=== PATIENT | female | born 1990 | race African-American/Black ===

== ENCOUNTER 2017-01-28 09:53 | Observation (INO) | payer MEDICAID ==
[~2017-01-28] VITALS: Ht 167.6 cm; Wt 115.2 kg
[~2017-01-28 09:53] MED LIST: FERR-63 PO; FOLI-43 PO; PREN-88 PO
[2017-01-28 10:50] LABS: BASOPHILS % 0.3 % (0.0-2.0); HEMOGLOBIN. 11.4 g/dL (12.0-16.0); LYMPHOCYTES % 28.3 % (20.0-50.0); MEAN CORPUSCULAR HEMOGLOBIN 29.3 pg (28.0-32.0); MEAN CORPUSCULAR VOLUME 87.7 fL (81.0-99.0); MEAN PLATELET VOLUME 8.6 fl (7.4-10.4); MONOCYTES % 8.4 % (2.0-8.0); PLATELET 213 x1000/uL (130-400); RED BLOOD CELL COUNT 3.88 mill/uL (4.2-5.4); RED CELL DISTRIBUTION WIDTH 13.6 % (11.6-14.6)
[2017-01-28 10:56] LABS: CHLORIDE 109 mEq/L (98-107)
[2017-01-28 10:57] LABS: CLARITY URINE CLOUDY (CLEAR); COLOR URINE DARK YELLOW (YELLOW); GLUCOSE URINE NEGATIVE (NEGATIVE); KETONES URINE TRACE (NEGATIVE); LEUKOCYTE ESTERASE URINE TRACE (NEGATIVE); NITRITE URINE NEGATIVE (NEGATIVE); OCCULT BLOOD URINE NEGATIVE (NEGATIVE); PH URINE 5.5 (4.5-8.0); PROTEIN URINE 3+ (NEGATIVE); SPECIFIC GRAVITY URINE 1.028 (1.005-1.030)
[2017-01-28 11:01] LABS: D-DIMER 1.21 mg/L FEU (<0.50); INR 0.9; PARTIAL THROMBOPLASTIN TIME 27.8 sec (24.0-34.0); PROTHROMBIN TIME 9.4 sec
[2017-01-28 11:05] LABS: CARBON DIOXIDE 23 mEq/L (21-32)
[2017-01-28] MEDS ORDERED: BETAMETHASONE ACET/BETAMET 30 MG/5 ML VIAL IM SCH (12:30)
[2017-01-28] MEDS ORDERED: LABETALOL 5MG/ML SYR 20 MG/4 ML SYRINGE IV NR (12:30)
[2017-01-28] MEDS: LACTATED RINGERS 1,000 ML IV SCH ×2 (12:59→17:44)
[2017-01-28 13:25] LABS: *AMPHETAMINES SCREEN URINE NEGATIVE (NEGATIVE); *BARBITURATES SCREEN URINE NEGATIVE (NEGATIVE); *BENZODIAZEPINES SCREEN URINE NEGATIVE (NEGATIVE); *COCAINE SCREEN URINE NEGATIVE (NEGATIVE); CANNABINOID URINE SCREEN NEGATIVE (NEGATIVE); METHADONE URINE SCREEN NEGATIVE (NEGATIVE); OPIATES URINE SCREEN NEGATIVE (NEGATIVE); PHENCYCLIDINE URINE SCREEN NEGATIVE (NEGATIVE)
[2017-01-28 14:21] LABS: HEPATITIS B SURFACE ANTIGEN NEGATIVE; RUBELLA IGG 61.5 IU/mL (4.99-10)
[2017-01-28] MEDS ORDERED: MAGNESIUM/ALUMINUM HYDROXIDE/SIMETHICONE 30ML UDC PO NR (14:30)
[2017-01-28] MEDS: MAGNESIUM 20 G PREMIX (L & D) 500 ML IV SCH (14:38)
[2017-01-28] MEDS ORDERED: ACETAMINOPHEN 325MG TABLET PO PRN (18:15)
[2017-01-28] MEDS: MAGNESIUM/ALUMINUM HYDROXIDE/SIMETHICONE 30ML UDC PO PRN (19:57)
[2017-01-29 02:11] LABS: CARBON DIOXIDE 22 mEq/L (21-32); CHLORIDE 105 mEq/L (98-107)
[2017-01-29] MEDS: LACTATED RINGERS 1,000 ML IV SCH ×2 (04:12→23:40)
[2017-01-29] MEDS: MAGNESIUM 20 G PREMIX (L & D) 500 ML IV SCH (07:18)
[2017-01-29] MEDS: MAGNESIUM/ALUMINUM HYDROXIDE/SIMETHICONE 30ML UDC PO PRN ×2 (07:49→17:42)
[2017-01-29 09:09] LABS: HEMATOCRIT. 33.1 % (36.0-48.0); HEMOGLOBIN. 11.1 g/dL (12.0-16.0); LYMPHOCYTES % 14.3 % (20.0-50.0); MEAN CORPUSCULAR HEMOGLOBIN 29.5 pg (28.0-32.0); MEAN CORPUSCULAR VOLUME 88.3 fL (81.0-99.0); MEAN PLATELET VOLUME 8.5 fl (7.4-10.4); MONOCYTES % 3.1 % (2.0-8.0); NEUTROPHILS % 82.6 % (40.0-76.0); PLATELET 235 x1000/uL (130-400); RED BLOOD CELL COUNT 3.75 mill/uL (4.2-5.4); RED CELL DISTRIBUTION WIDTH 13.7 % (11.6-14.6)
[2017-01-29] MEDS: CALCIUM CARBONATE 500MG TABLET CHEW PO SCH ×2 (12:50→18:22)
[2017-01-29 12:56] LABS: HEMATOCRIT 32.1 % (36.0-48.0); HEMOGLOBIN 10.8 g/dL (12.0-16.0); MEAN CORPUSCULAR HEMOGLOBIN 29.5 pg (28.0-32.0); MEAN CORPUSCULAR VOLUME 87.5 fL (81.0-99.0); PLATELET 237 x1000/uL (130-400); RED BLOOD CELL COUNT 3.67 mill/uL (4.2-5.4); RED CELL DISTRIBUTION WIDTH 13.6 % (11.6-14.6)
[2017-01-29] MEDS ORDERED: BETAMETHASONE ACET/BETAMET 30 MG/5 ML VIAL IM SCH (13:00)
[2017-01-29 13:11] LABS: CARBON DIOXIDE 23 mEq/L (21-32); CHLORIDE 106 mEq/L (98-107)
[2017-01-29] MEDS ORDERED: CITRIC ACID/SODIUM CITRATE SOLN 30ML UDC PO SCH (21:00)
[2017-01-29] MEDS ORDERED: CITRIC ACID/SODIUM CITRATE SOLN 30ML UDC PO PRN (21:30)
[2017-01-30] MEDS: MAGNESIUM/ALUMINUM HYDROXIDE/SIMETHICONE 30ML UDC PO PRN ×3 (00:09→20:49)
[2017-01-30 03:00] LABS: HEMATOCRIT. 31.9 % (36.0-48.0); HEMOGLOBIN. 10.4 g/dL (12.0-16.0); MEAN CORPUSCULAR HEMOGLOBIN 29.4 pg (28.0-32.0); MEAN CORPUSCULAR VOLUME 90.1 fL (81.0-99.0); PLATELET 238 x1000/uL (130-400); RED BLOOD CELL COUNT 3.54 mill/uL (4.2-5.4)
[2017-01-30 03:12] LABS: CARBON DIOXIDE 25 mEq/L (21-32); CHLORIDE 108 mEq/L (98-107)
[2017-01-30] MEDS: MAGNESIUM 20 G PREMIX (L & D) 500 ML IV SCH ×2 (04:50→23:16)
[2017-01-30 07:35] LABS: NUCLEATED RED BLOOD CELLS 1 /100 WBC; PLATELET ESTIMATE NORMAL
[2017-01-30] MEDS: CALCIUM CARBONATE 500MG TABLET CHEW PO SCH ×3 (08:11→18:32)
[2017-01-30] MEDS: LACTATED RINGERS 1,000 ML IV SCH ×2 (10:00→23:09)
[2017-01-30] MEDS: PANTOPRAZOLE 40MG DR TABLET PO SCH (15:33)
[2017-01-30 15:40] LABS: BASOPHILS % 0.1 % (0.0-2.0); EOSINOPHILS % 0.1 % (0.0-5.0); HEMATOCRIT. 31.3 % (36.0-48.0); HEMOGLOBIN. 10.4 g/dL (12.0-16.0); LYMPHOCYTES % 20.5 % (20.0-50.0); MEAN CORPUSCULAR HEMOGLOBIN 29.7 pg (28.0-32.0); MEAN PLATELET VOLUME 8.7 fl (7.4-10.4); MONOCYTES % 9.4 % (2.0-8.0); NEUTROPHILS % 69.9 % (40.0-76.0); PLATELET 221 x1000/uL (130-400); RED BLOOD CELL COUNT 3.51 mill/uL (4.2-5.4); RED CELL DISTRIBUTION WIDTH 13.9 % (11.6-14.6)
[2017-01-30 15:52] LABS: CARBON DIOXIDE 24 mEq/L (21-32); CHLORIDE 108 mEq/L (98-107)
[2017-01-30 23:16] VITALS: BP 135/72
[2017-01-31] MEDS: LACTATED RINGERS 1,000 ML IV SCH (05:25)
[2017-01-31 05:26] LABS: BASOPHILS % 0.2 % (0.0-2.0); EOSINOPHILS % 0.4 % (0.0-5.0); HEMATOCRIT. 30.3 % (36.0-48.0); HEMOGLOBIN. 10.1 g/dL (12.0-16.0); LYMPHOCYTES % 24.2 % (20.0-50.0); MEAN CORPUSCULAR HEMOGLOBIN 29.5 pg (28.0-32.0); MEAN PLATELET VOLUME 7.7 fl (7.4-10.4); MONOCYTES % 8.3 % (2.0-8.0); NEUTROPHILS % 66.9 % (40.0-76.0); PLATELET 199 x1000/uL (130-400); RED BLOOD CELL COUNT 3.41 mill/uL (4.2-5.4)
[2017-01-31 05:31] LABS: CHLORIDE 108 mEq/L (98-107)
[2017-01-31 05:41] LABS: CARBON DIOXIDE 28 mEq/L (21-32)
[2017-01-31] MEDS: CALCIUM CARBONATE 500MG TABLET CHEW PO SCH (07:31)
[2017-01-31] MEDS: PANTOPRAZOLE 40MG DR TABLET PO SCH (10:13)
== END 2017-01-31 15:40 | disposition home or self-care (01) ==
LOC: L&D 09:53
PROVIDERS: ADMIT Obstetrics & Gynecology; ATTEND Obstetrics & Gynecology
DX: O13.3 Gestational [pregnancy-induced] hypertension without significant proteinuria, third trimester (principal); O99.343 Other mental disorders complicating pregnancy, third trimester; F31.9 Bipolar disorder, unspecified; F32.9 Major depressive disorder, single episode, unspecified; Z3A.32 32 weeks gestation of pregnancy
CPT/HCPCS: 36415; 76805; 76818; 80053; 80305; 81001; 83735; 84550; 85007; 85025; 85027; 85379; 85384; 85610; 85730; 86592; 86703; 86762; 86850; 86900; 86901; 87340; 93971; 96365; 96366; 96372; 96375; 99281; G0378; J0702; J3475; J3490; J7120; 59412

== ENCOUNTER 2017-02-06 11:20 | Observation (INO) | payer MEDICAID ==
[~2017-02-06] VITALS: Ht 170.2 cm; Wt 115.2 kg
[2017-02-06] MEDS ORDERED: METH250T11 PO (12:23)
[2017-02-06] MEDS ORDERED: LACTATED RINGERS 1,000 ML IV SCH (14:24)
[2017-02-06] MEDS ORDERED: MAGNESIUM 20 G PREMIX (L & D) 500 ML IV SCH (14:30)
[2017-02-06] MEDS ORDERED: DEXT 5%/LR + PITOCIN 20UNITS/L 1,000 ML IV SCH (14:30)
[2017-02-06] MEDS ORDERED: LABETALOL 5MG/ML SYR 20 MG/4 ML SYRINGE IV NR (14:30)
[2017-02-06] MEDS ORDERED: METHYLERGONOVINE MALEATE 0.2 MG/ML IM PRN (14:30)
[2017-02-06] MEDS ORDERED: CARBOPROST TROMETHAMINE 250 MCG/ML AMPUL IM PRN (14:30)
[2017-02-06 14:59] VITALS: BP 170/112
[2017-02-06] MEDS ORDERED: ACETAMINOPHEN 500MG TABLET PO NR (15:00)
[2017-02-06 15:48] LABS: BASOPHILS % 0.3 % (0.0-2.0); EOSINOPHILS % 0.5 % (0.0-5.0); HEMATOCRIT. 38.9 % (36.0-48.0); HEMOGLOBIN. 13.3 g/dL (12.0-16.0); LYMPHOCYTES % 28.8 % (20.0-50.0); MEAN CORPUSCULAR HEMOGLOBIN 30.2 pg (28.0-32.0); MEAN CORPUSCULAR VOLUME 88.4 fL (81.0-99.0); MEAN PLATELET VOLUME 9.7 fl (7.4-10.4); NEUTROPHILS % 64.4 % (40.0-76.0); PLATELET 208 x1000/uL (130-400); RED CELL DISTRIBUTION WIDTH 14.1 % (11.6-14.6)
[2017-02-06 15:53] LABS: INR 0.9; PARTIAL THROMBOPLASTIN TIME 26.8 sec (24.0-34.0); PROTHROMBIN TIME 9.3 sec
[2017-02-06 15:54] LABS: CLARITY URINE CLOUDY (CLEAR); COLOR URINE YELLOW (YELLOW); GLUCOSE URINE NEGATIVE (NEGATIVE); KETONES URINE NEGATIVE (NEGATIVE); LEUKOCYTE ESTERASE URINE TRACE (NEGATIVE); NITRITE URINE NEGATIVE (NEGATIVE); OCCULT BLOOD URINE 1+ (NEGATIVE); PH URINE 6.5 (4.5-8.0); PROTEIN URINE 3+ (NEGATIVE); SPECIFIC GRAVITY URINE 1.008 (1.005-1.030); UROBILINOGEN URINE 0.2 E.U./dL (0.2-1.0)
[2017-02-06 15:56] LABS: CHLORIDE 105 mEq/L (98-107)
[2017-02-06 16:03] LABS: CARBON DIOXIDE 23 mEq/L (21-32)
[2017-02-06 16:13] LABS: *AMPHETAMINES SCREEN URINE NEGATIVE (NEGATIVE); *BARBITURATES SCREEN URINE NEGATIVE (NEGATIVE); *BENZODIAZEPINES SCREEN URINE NEGATIVE (NEGATIVE); *COCAINE SCREEN URINE NEGATIVE (NEGATIVE); CANNABINOID URINE SCREEN NEGATIVE (NEGATIVE); METHADONE URINE SCREEN NEGATIVE (NEGATIVE); OPIATES URINE SCREEN NEGATIVE (NEGATIVE); PHENCYCLIDINE URINE SCREEN NEGATIVE (NEGATIVE)
[2017-02-06 16:23] LABS: HEPATITIS B SURFACE ANTIGEN NEGATIVE; RUBELLA IGG 59.7 IU/mL (4.99-10)
[2017-02-06] MEDS ORDERED: CITRIC ACID/SODIUM CITRATE SOLN 30ML UDC PO NR (16:30)
[2017-02-06] MEDS ORDERED: MORPHINE SULFATE/PF 1MG/ML 10ML AMP ONE (17:35)
[2017-02-06] MEDS ORDERED: FENTANYL CITRATE/PF 50MCG/ML 2ML VIAL ONE (17:35)
[2017-02-06] MEDS ORDERED: METOCLOPRAMIDE HCL 10MG/2ML VIAL ONE (17:38)
[2017-02-06] MEDS ORDERED: ONDANSETRON HCL 4MG/2ML VIAL ONE (17:38)
[2017-02-06] MEDS ORDERED: OXYTOCIN 10 UNITS/ML 1ML ONE (17:38)
[2017-02-06] MEDS ORDERED: CEFAZOLIN 2000MG PREMIX 50 ML IV ONE (17:45)
[2017-02-06] MEDS ORDERED: ALBUTEROL 6.7GM HFA INHALER ORI PRN (18:00)
== END 2017-02-06 18:07 | disposition left against medical advice (07) ==
LOC: L&D 11:20 → UNDODISOB 12:15 → L&D 12:25
PROVIDERS: ADMIT Obstetrics & Gynecology; ATTEND Obstetrics & Gynecology
DX: O14.13 Severe pre-eclampsia, third trimester (principal); O99.513 Diseases of the respiratory system complicating pregnancy, third trimester; J45.909 Unspecified asthma, uncomplicated; Z3A.32 32 weeks gestation of pregnancy
CPT/HCPCS: 36415; 59025; 76815; 76818; 80053; 80305; 81001; 84550; 85025; 85384; 85610; 85730; 86592; 86703; 86762; 86850; 86900; 86901; 87340; 96365; 96366; 96375; G0378; J0690; J2765; J3010; J3475; J3490; J7120; J2274; J2405; J7611; A4315

== ENCOUNTER 2017-04-27 10:34 | Emergency (ER) | payer MEDICAID ==
[~2017-04-27] VITALS: Ht 167.6 cm; Wt 110.0 kg
[~2017-04-27 10:34] MED LIST changes: -FOLI-43 PO; -PREN-88 PO
[2017-04-27 11:50] LABS: CLARITY URINE CLEAR (CLEAR); COLOR URINE YELLOW (YELLOW); GLUCOSE URINE NEGATIVE (NEGATIVE); KETONES URINE NEGATIVE (NEGATIVE); LEUKOCYTE ESTERASE URINE NEGATIVE (NEGATIVE); NITRITE URINE NEGATIVE (NEGATIVE); OCCULT BLOOD URINE 2+ (NEGATIVE); PH URINE 5.5 (4.5-8.0); PROTEIN URINE 1+ (NEGATIVE); SPECIFIC GRAVITY URINE 1.023 (1.005-1.030); UROBILINOGEN URINE 0.2 E.U./dL (0.2-1.0)
[2017-04-27 12:09] LABS: BASOPHILS % 0.5 % (0.0-2.0); EOSINOPHILS % 1.4 % (0.0-5.0); HEMATOCRIT. 35.9 % (36.0-48.0); HEMOGLOBIN. 12.2 g/dL (12.0-16.0); LYMPHOCYTES % 34.9 % (20.0-50.0); MEAN CORPUSCULAR HEMOGLOBIN 28.7 pg (28.0-32.0); MEAN CORPUSCULAR VOLUME 84.1 fL (81.0-99.0); MEAN PLATELET VOLUME 7.1 fl (7.4-10.4); MONOCYTES % 5.9 % (2.0-8.0); NEUTROPHILS % 57.3 % (40.0-76.0); PLATELET 298 x1000/uL (130-400); RED BLOOD CELL COUNT 4.26 mill/uL (4.2-5.4); RED CELL DISTRIBUTION WIDTH 14.4 % (11.6-14.6)
[2017-04-27 12:17] LABS: *AMPHETAMINES SCREEN URINE NEGATIVE (NEGATIVE); *BARBITURATES SCREEN URINE NEGATIVE (NEGATIVE); *BENZODIAZEPINES SCREEN URINE NEGATIVE (NEGATIVE); *COCAINE SCREEN URINE NEGATIVE (NEGATIVE); CANNABINOID URINE SCREEN NEGATIVE (NEGATIVE); METHADONE URINE SCREEN NEGATIVE (NEGATIVE); OPIATES URINE SCREEN NEGATIVE (NEGATIVE); PHENCYCLIDINE URINE SCREEN NEGATIVE (NEGATIVE)
[2017-04-27 12:21] LABS: CARBON DIOXIDE 30 mEq/L (21-32); CHLORIDE 105 mEq/L (98-107); ETHANOL BLOOD < 10 mg/dL
[2017-04-27 12:26] LABS: TROPONIN I < 0.02 ng/mL (0.00-0.04)
[2017-04-27 15:52] VITALS: BP 138/84
== END 2017-04-27 16:21 | disposition left against medical advice (07) ==
LOC: ER 10:46
DX: G40.89 Other seizures (principal); R51 Headache; H53.8 Other visual disturbances; I10 Essential (primary) hypertension; J45.909 Unspecified asthma, uncomplicated; Z91.018 Allergy to other foods
CPT/HCPCS: 36415; 70450; 80053; 80305; 81001; 81025; 84484; 85025; 93005; 99285; G0482; Z7610

== ENCOUNTER 2017-06-23 18:05 | Emergency (ER) | payer MEDICAID ==
[~2017-06-23] VITALS: Ht 170.2 cm; Wt 112.0 kg
[2017-06-23 18:19] VITALS: BP 147/83
== END 2017-06-23 22:14 | disposition left against medical advice (07) ==
LOC: ER 18:13
DX: Z53.21 Procedure and treatment not carried out due to patient leaving prior to being seen by health care provider (principal); J45.909 Unspecified asthma, uncomplicated; I10 Essential (primary) hypertension

== ENCOUNTER 2017-11-10 15:36 | Emergency (ER) | payer MEDICAID ==
[~2017-11-10] VITALS: Ht 165.1 cm; Wt 113.0 kg
[2017-11-10] MEDS ORDERED: PREDNISONE 20MG TABLET PO STA (19:37)
[2017-11-10] MEDS ORDERED: ALBUTEROL (0.083%) 2.5MG/3ML NEB HHN STA (19:37)
[2017-11-10] MEDS ORDERED: IPRATROPIUM BROMIDE (0.02%) 0.5MG/2.5ML NEB HHN STA (19:37)
[2017-11-10 19:40] VITALS: BP 131/89
[2017-11-10] MEDS ORDERED: LIDOCAINE HCL 1% 20ML VIAL (Pyxis) INJ MC ONE (19:45)
[2017-11-10] MEDS ORDERED: BACITRACIN ZINC OINT UDPKT TOP ONE (19:45)
== END 2017-11-10 21:37 | disposition home or self-care (01) ==
LOC: ER 15:36
DX: J45.909 Unspecified asthma, uncomplicated (principal); L02.412 Cutaneous abscess of left axilla; I10 Essential (primary) hypertension; Z91.018 Allergy to other foods
CPT/HCPCS: 71045; 81025; 94640; 99283; J3490; J7512; J7611; X7700; Z7610

== ENCOUNTER 2019-04-05 21:09 | Emergency (ER) | payer MEDICAID ==
[~2019-04-05] VITALS: Ht 167.6 cm; Wt 107.0 kg
[2019-04-05] MEDS ORDERED: DIPHENHYDRAMINE HCL/ZINC ACET 28 GM CREAM TOP STA (22:54)
[2019-04-05] MEDS ORDERED: DIPHENHYDRAMINE 25MG CAPSULE PO ONE (23:00)
[2019-04-05] MEDS ORDERED: BUTALBITAL/ACETAMINOPHEN/CAFFEINE 50/325/40MG TABLET PO ONE (23:00)
[2019-04-06 00:38] LABS: CLARITY URINE CLOUDY (CLEAR); COLOR URINE YELLOW (YELLOW); KETONES URINE NEGATIVE (NEGATIVE); LEUKOCYTE ESTERASE URINE TRACE (NEGATIVE); NITRITE URINE NEGATIVE (NEGATIVE); OCCULT BLOOD URINE 1+ (NEGATIVE); PH URINE 5.5 (4.5-8.0); PROTEIN URINE TRACE (NEGATIVE); SPECIFIC GRAVITY URINE 1.039 (1.005-1.030)
[2019-04-06 03:30] VITALS: BP 110/54
== END 2019-04-06 03:30 | disposition home or self-care (01) ==
LOC: ER 23:49
DX: R51 Headache (principal); N39.0 Urinary tract infection, site not specified
CPT/HCPCS: 81003; 81025; 99284; Q0163; Z7610

== ENCOUNTER 2020-03-16 13:43 | Emergency (ER) | payer MEDICAID ==
[~2020-03-16] VITALS: Ht 167.6 cm; Wt 112.0 kg
[2020-03-16 16:34] VITALS: BP 131/71
[2020-03-16 17:44] LABS: CLARITY URINE CLEAR (CLEAR); COLOR URINE YELLOW (YELLOW); KETONES URINE TRACE (NEGATIVE); LEUKOCYTE ESTERASE URINE NEGATIVE (NEGATIVE); NITRITE URINE NEGATIVE (NEGATIVE); OCCULT BLOOD URINE NEGATIVE (NEGATIVE); PROTEIN URINE NEGATIVE (NEGATIVE); SPECIFIC GRAVITY URINE 1.031 (1.005-1.030)
[2020-03-16 18:00] LABS: *AMPHETAMINES SCREEN URINE NEGATIVE (NEGATIVE); *BARBITURATES SCREEN URINE NEGATIVE (NEGATIVE); *BENZODIAZEPINES SCREEN URINE NEGATIVE (NEGATIVE); *COCAINE SCREEN URINE NEGATIVE (NEGATIVE)
[2020-03-16] MEDS ORDERED: DIPHENHYDRAMINE 25MG CAPSULE PO ONE (18:00)
[2020-03-16] MEDS ORDERED: ACETAMINOPHEN 325MG TABLET PO ONE (18:00)
[2020-03-16] MEDS ORDERED: AMOXICILLIN 250MG CAPSULE PO ONE (18:00)
[2020-03-16 18:01] LABS: CANNABINOID URINE SCREEN NEGATIVE (NEGATIVE); METHADONE URINE SCREEN NEGATIVE (NEGATIVE); OPIATES URINE SCREEN NEGATIVE (NEGATIVE); PHENCYCLIDINE URINE SCREEN NEGATIVE (NEGATIVE)
== END 2020-03-16 19:01 | disposition home or self-care (01) ==
LOC: ER 13:43
DX: T38.6X5A Adverse effect of antigonadotrophins, antiestrogens, antiandrogens, not elsewhere classified, initial encounter (principal); R11.2 Nausea with vomiting, unspecified; L29.9 Pruritus, unspecified; R82.4 Acetonuria; C50.919 Malignant neoplasm of unspecified site of unspecified female breast; J45.909 Unspecified asthma, uncomplicated; I10 Essential (primary) hypertension
CPT/HCPCS: 80305; 81003; 99284; Q0163

== ENCOUNTER 2021-10-20 00:48 | Emergency (ER) | payer MEDICAID ==
[~2021-10-20] VITALS: Ht 167.6 cm; Wt 107.0 kg
[2021-10-20 03:40] VITALS: BP 128/82
[2021-10-20] MEDS ORDERED: NAPR500T7 MT (03:40)
[2021-10-20] MEDS ORDERED: CLIN300C12 MT (03:40)
== END 2021-10-20 03:44 | disposition home or self-care (01) ==
LOC: ER 00:48
DX: C50.912 Malignant neoplasm of unspecified site of left female breast (principal); J45.909 Unspecified asthma, uncomplicated; K59.00 Constipation, unspecified; I10 Essential (primary) hypertension; Z98.890 Other specified postprocedural states
CPT/HCPCS: 81025; 99282; 99283

== ENCOUNTER 2022-09-22 10:54 | Emergency (ER) | payer MEDICAID, OTHER ==
[~2022-09-22] VITALS: Ht 167.6 cm; Wt 107.0 kg
[~2022-09-22 10:54] MED LIST changes: +CLIN-194 MT; +NAPR500T7 MT
[2022-09-22] MEDS ORDERED: KETOROLAC 60MG/2ML VIAL IM ONE (12:15)
[2022-09-22] MEDS ORDERED: LIDOCAINE 5% PATCH TOP SCH (12:15)
[2022-09-22] MEDS ORDERED: ACETAMINOPHEN 325MG TABLET PO ONE (12:15)
[2022-09-22 13:00] VITALS: BP 137/86
[2022-09-22] MEDS ORDERED: ACET-2708 MT (13:59)
[2022-09-22] MEDS ORDERED: LIDO1ADH7 TP (13:59)
== END 2022-09-22 14:29 | disposition home or self-care (01) ==
LOC: ER 10:54
DX: S46.092A Other injury of muscle(s) and tendon(s) of the rotator cuff of left shoulder, initial encounter (principal); S39.012A Strain of muscle, fascia and tendon of lower back, initial encounter; I10 Essential (primary) hypertension; V49.49XA Driver injured in collision with other motor vehicles in traffic accident, initial encounter; Y93.89 Activity, other specified; Z85.3 Personal history of malignant neoplasm of breast; Y92.488 Other paved roadways as the place of occurrence of the external cause; Z90.12 Acquired absence of left breast and nipple
CPT/HCPCS: 73000; 73030; 99284; J1885

== ENCOUNTER 2023-04-15 19:46 | Emergency (ER) | payer BC, MEDICAID, OTHER ==
[~2023-04-15] VITALS: Ht 167.6 cm; Wt 105.0 kg
[~2023-04-15 19:46] MED LIST changes: +ACET-2708 MT; +LIDO1ADH7 TP
[2023-04-15 20:28] VITALS: BP 140/91; PULSE 99; RESP 16; TEMP 98.6; O2SAT 100
[2023-04-15 21:07] LABS: BASOPHILS % 0.3 % (0.0-2.0); HEMOGLOBIN. 11.4 g/dL (12.0-16.0); LYMPHOCYTES % 18.4 % (20.0-50.0); MEAN CORPUSCULAR HEMOGLOBIN 27.6 pg (28.0-32.0); MEAN CORPUSCULAR HGB CONC 31.7 g/dL (31.0-37.0); MEAN CORPUSCULAR VOLUME 87.1 fL (81.0-99.0); MEAN PLATELET VOLUME 7.3 fl (7.4-10.4); MONOCYTES % 5.9 % (2.0-8.0); NEUTROPHILS % 74.4 % (40.0-76.0); PLATELET 262 x1000/uL (130-400); RED BLOOD CELL COUNT 4.13 mill/uL (4.2-5.4); RED CELL DISTRIBUTION WIDTH 15.3 % (11.6-14.6); WHITE BLOOD COUNT 4.7 x1000/uL (4.5-11.0)
[2023-04-15 21:13] LABS: CHLORIDE 104 mEq/L (98-107); INDEX HEMOLYSI 2 (1-3); INDEX ICTERIC 1 (1-4); INDEX LIPEMIC 1 (1-3); POTASSIUM 3.9 mEq/L (3.5-5.1); SODIUM 137 mEq/L (136-145)
[2023-04-15 21:21] LABS: ALANINE AMINOTRANSFERASE 22 IU/L (13-61); ALBUMIN 3.3 g/dL (3.4-5.0); ASPARTATE AMINOTRANSFERASE 17 IU/L (15-37); BILIRUBIN TOTAL 0.2 mg/dL (0.1-1.0); CALCIUM 9.2 mg/dL (8.5-10.1); CARBON DIOXIDE 27 mEq/L (21-32); CREATININE 1.2 mg/dL (0.6-1.3); GLUCOSE 135 mg/dL (70-105); PROTEIN TOTAL 7.9 g/dL (6.0-8.3); UREA NITROGEN BLOOD 12 mg/dL (7-21)
[2023-04-15 21:49] LABS: CLARITY URINE CLEAR (CLEAR); COLOR URINE YELLOW (YELLOW); GLUCOSE URINE NEGATIVE (NEGATIVE); KETONES URINE TRACE (NEGATIVE); LEUKOCYTE ESTERASE URINE NEGATIVE (NEGATIVE); NITRITE URINE NEGATIVE (NEGATIVE); OCCULT BLOOD URINE NEGATIVE (NEGATIVE); PROTEIN URINE NEGATIVE (NEGATIVE); SPECIFIC GRAVITY URINE 1.026 (1.005-1.030)
== END 2023-04-15 23:45 | disposition left against medical advice (07) ==
LOC: ER 19:46
DX: Z53.21 Procedure and treatment not carried out due to patient leaving prior to being seen by health care provider (principal); I49.9 Cardiac arrhythmia, unspecified
CPT/HCPCS: 36415; 80053; 81003; 81025; 85025; 93005; 99281

== ENCOUNTER 2024-03-07 21:04 | Emergency (ER) | payer BC, MEDICAID ==
[~2024-03-07] VITALS: Ht 170.2 cm; Wt 107.5 kg
[2024-03-07 21:36] VITALS: O2SAT 98
[2024-03-08] MEDS: MAGNESIUM/ALUMINUM HYDROXIDE/SIMETHICONE 30ML UDC PO ONE (01:02)
[2024-03-08] MEDS: OMEPRAZOLE 20MG CAPSULE EXTENDED RELEASE PO ONE (01:02)
[2024-03-08] MEDS ORDERED: OMEP20CA14 MT (01:53)
[2024-03-08] MEDS ORDERED: SUCR1ORA15 PO (01:53)
[2024-03-08] MEDS ORDERED: HYDR30CR7 TP (02:02)
[2024-03-08 02:14] VITALS: BP 132/84; PULSE 77; RESP 18; TEMP 98.3
== END 2024-03-08 02:18 | disposition home or self-care (01) ==
LOC: ER 21:49
DX: K21.9 Gastro-esophageal reflux disease without esophagitis (principal); J45.909 Unspecified asthma, uncomplicated; Z85.9 Personal history of malignant neoplasm, unspecified; Z79.899 Other long term (current) drug therapy
CPT/HCPCS: 36415; 71045; 85379; 93005; 99285

== ENCOUNTER 2024-04-26 15:50 | Emergency (ER) | payer BC, MEDICAID ==
[~2024-04-26] VITALS: Ht 167.6 cm; Wt 106.0 kg
[~2024-04-26 15:50] MED LIST changes: +HYDR30CR7 TP; +OMEP20CA14 MT; +SUCR1ORA15 PO
[2024-04-26 15:55] VITALS: TEMP 98.4; O2SAT 98
[2024-04-26 17:08] LABS: BASOPHILS % 0.7 % (0.0-2.0); EOSINOPHILS % 1.1 % (0.0-5.0); HEMATOCRIT. 36.5 % (36.0-48.0); HEMOGLOBIN. 11.5 g/dL (12.0-16.0); LYMPHOCYTES % 36.7 % (20.0-50.0); MEAN CORPUSCULAR HEMOGLOBIN 26.9 pg (28.0-32.0); MEAN CORPUSCULAR HGB CONC 31.5 g/dL (31.0-37.0); MEAN CORPUSCULAR VOLUME 85.4 fL (81.0-99.0); MEAN PLATELET VOLUME 7.7 fl (7.4-10.4); MONOCYTES % 4.9 % (2.0-8.0); NEUTROPHILS % 56.6 % (40.0-76.0); PLATELET 272 x1000/uL (130-400); RED BLOOD CELL COUNT 4.28 mill/uL (4.2-5.4); RED CELL DISTRIBUTION WIDTH 15.5 % (11.6-14.6); WHITE BLOOD COUNT 5.9 x1000/uL (4.5-11.0)
[2024-04-26 17:09] LABS: POTASSIUM 4.2 mEq/L (3.5-5.1)
[2024-04-26 17:10] LABS: CALCIUM 9.6 mg/dL (8.7-10.4)
[2024-04-26 17:15] LABS: CREATININE 1.5 mg/dL (0.6-1.0); HCG SCREEN NEGATIVE
[2024-04-26] MEDS ORDERED: PANTOPRAZOLE SODIUM 40 MG/VIAL IV ONE (17:30)
[2024-04-26] MEDS ORDERED: SODIUM CHLORIDE 0.9% 1,000 ML IV ONE (17:30)
[2024-04-26 17:34] LABS: ALANINE AMINOTRANSFERASE 11 IU/L (10-49); ALBUMIN 4.4 g/dL (3.2-4.8); ASPARTATE AMINOTRANSFERASE 17 IU/L (<34); BILIRUBIN TOTAL 0.3 mg/dL (0.1-1.0); PROTEIN TOTAL 7.4 g/dL (6.0-8.3)
[2024-04-26 17:36] LABS: BILIRUBIN DIRECT < 0.1 mg/dL (<=3.0); ETHANOL BLOOD < 10 mg/dL (<10); TROPONIN I HIGH SENSITIVITY < 4 ng/L (3.0-34)
[2024-04-26 17:55] LABS: D-DIMER 0.39 mg/L FEU (<0.50); INR 0.9; PARTIAL THROMBOPLASTIN TIME 24.7 sec (23.4-31.0); PROTHROMBIN TIME 10.5 sec (9.6-11.0)
[2024-04-26] MEDS ORDERED: PROT20 MT (18:26)
[2024-04-26] MEDS: PANTOPRAZOLE 40MG DR TABLET PO ONE (18:27)
[2024-04-26] MEDS: PANTOPRAZOLE 40MG DR TABLET PO SCH (18:28)
[2024-04-26] MEDS: PANTOPRAZOLE SODIUM 40 MG/VIAL IV SCH (18:28)
[2024-04-26 18:51] VITALS: BP 130/80; PULSE 70; RESP 15; O2SAT 99
== END 2024-04-26 18:52 | disposition home or self-care (01) ==
LOC: ER 15:50
DX: K92.0 Hematemesis (principal); J45.909 Unspecified asthma, uncomplicated; Z85.3 Personal history of malignant neoplasm of breast; Z85.9 Personal history of malignant neoplasm, unspecified; Z79.899 Other long term (current) drug therapy
CPT/HCPCS: 80076; 80048; 80320; 84703; 83690; 85025; 85379; 85610; 85730; 86850; 86900; 86901; 84484; 36415; 71045; 93005; 99285; J2470; J7030; G0480

== ENCOUNTER 2024-09-26 23:15 | Emergency (ER) | payer BC ==
[~2024-09-26] VITALS: Ht 167.6 cm; Wt 90.0 kg
[~2024-09-26 23:15] MED LIST changes: +NAPR-1486 MT; -NAPR500T7 MT; +PROT20 MT
[2024-09-26 23:38] VITALS: O2SAT 97
[2024-09-27 00:02] VITALS: BP 143/89; PULSE 96; RESP 18; TEMP 98.6; O2SAT 100
[2024-09-27] MEDS ORDERED: CETI1TAB MT (01:59)
[2024-09-27] MEDS ORDERED: IBUP-2028 MT (01:59)
[2024-09-27] MEDS ORDERED: TUSSL MT (01:59)
== END 2024-09-27 02:03 | disposition home or self-care (01) ==
LOC: ER 23:15
DX: J06.9 Acute upper respiratory infection, unspecified (principal); J45.909 Unspecified asthma, uncomplicated; Z79.1 Long term (current) use of non-steroidal anti-inflammatories (NSAID); Z79.899 Other long term (current) drug therapy; Z90.13 Acquired absence of bilateral breasts and nipples; Z20.822 Contact with and (suspected) exposure to COVID-19
CPT/HCPCS: 87426; 87804; 99283

== ENCOUNTER 2025-01-09 22:35 | Emergency (ER) | payer BC, MEDICAID ==
[~2025-01-09] VITALS: Ht 167.6 cm; Wt 105.9 kg
[~2025-01-09 22:35] MED LIST changes: +CETI1TAB MT; +IBUP-2028 MT; +TUSSL MT
[2025-01-09 22:39] VITALS: O2SAT 98
[2025-01-09 22:41] VITALS: BP 132/81; PULSE 88; RESP 16; TEMP 36.8; O2SAT 98
[2025-01-10] MEDS ORDERED: ACET-2708 MT ×2 (02:15)
== END 2025-01-10 02:20 | disposition home or self-care (01) ==
LOC: ER 22:35
DX: S09.8XXA Other specified injuries of head, initial encounter (principal); M54.2 Cervicalgia; I10 Essential (primary) hypertension; J45.909 Unspecified asthma, uncomplicated; Z79.1 Long term (current) use of non-steroidal anti-inflammatories (NSAID); Z79.899 Other long term (current) drug therapy; V89.2XXA Person injured in unspecified motor-vehicle accident, traffic, initial encounter; Y93.89 Activity, other specified; Y92.89 Other specified places as the place of occurrence of the external cause; Y99.8 Other external cause status
CPT/HCPCS: 99284

== ENCOUNTER 2025-06-29 20:11 | Emergency (ER) | payer BC, MEDICAID ==
[~2025-06-29] VITALS: Ht 165.1 cm; Wt 106.0 kg
[2025-06-29 21:02] VITALS: O2SAT 99
[2025-06-29 22:19] LABS: BASOPHILS % 0.4 % (0.0-2.0); EOSINOPHILS % 1.2 % (0.0-5.0); HEMATOCRIT. 35.5 % (36.0-48.0); HEMOGLOBIN. 11.3 g/dL (12.0-16.0); LYMPHOCYTES % 39.1 % (20.0-50.0); MEAN PLATELET VOLUME 7.5 fl (7.4-10.4); MONOCYTES % 5.7 % (2.0-8.0); NEUTROPHILS % 53.6 % (40.0-76.0); PLATELET 316 x1000/uL (130-400); RED BLOOD CELL COUNT 4.13 mill/uL (4.2-5.4); RED CELL DISTRIBUTION WIDTH 15.9 % (11.6-14.6)
[2025-06-29 22:38] LABS: CREATININE 1.3 mg/dL (0.6-1.0); UREA NITROGEN BLOOD 10 mg/dL (9-23)
[2025-06-29 22:40] LABS: ASPARTATE AMINOTRANSFERASE 13 IU/L (<34); BILIRUBIN DIRECT < 0.1 mg/dL (<=3.0)
[2025-06-29 22:41] LABS: BILIRUBIN TOTAL 0.3 mg/dL (0.1-1.0); PROTEIN TOTAL 7.8 g/dL (6.0-8.3)
[2025-06-29 22:42] LABS: HCG SCREEN NEGATIVE
[2025-06-29] MEDS: ONDANSETRON 4MG ODT PO ONE (22:45)
[2025-06-29] MEDS: VISCOUS LIDOCAINE 2% 15 ML UDC MM ONE (22:54)
[2025-06-29] MEDS: MAGNESIUM/ALUMINUM HYDROXIDE/SIMETHICONE 30ML UDC PO ONE (22:54)
[2025-06-29] MEDS ORDERED: ONDA4TAB50 MT (23:32)
[2025-06-29] MEDS ORDERED: SUCR1TAB30 MT (23:32)
[2025-06-29 23:43] VITALS: BP 131/72; PULSE 67; RESP 18; TEMP 36.7; O2SAT 99
== END 2025-06-29 23:45 | disposition home or self-care (01) ==
LOC: ER 20:11
DX: K29.70 Gastritis, unspecified, without bleeding (principal); R13.10 Dysphagia, unspecified; I10 Essential (primary) hypertension; J45.909 Unspecified asthma, uncomplicated; Z79.1 Long term (current) use of non-steroidal anti-inflammatories (NSAID); Z79.899 Other long term (current) drug therapy; Z85.3 Personal history of malignant neoplasm of breast; Z87.19 Personal history of other diseases of the digestive system
CPT/HCPCS: 99284; 80076; 80048; 84703; 83690; 85025; 36415; Q0162